=== PATIENT | female | born 1975 | race Caucasian/White ===

== ENCOUNTER 2024-09-29 16:23 | Emergency (ER) | payer OTHER, SELFPAY ==
[2024-09-29 16:37] VITALS: BP 126/78; PULSE 67; RESP 17; TEMP 36.7; O2SAT 99
--- NOTE | 2024-09-29 16:45 | DI.RAD_ITS ---
Exam(s) XR KNEE LT 3V AP,LAT,ADRIANNA EXAM: XR KNEE LT 3V AP,LAT,ADRIANNA CLINICAL HISTORY: L knee injury. TECHNIQUE: 2D digital imaging was performed of the left knee. Three images were obtained. AP, late ral and PA tunnel views were obtained. COMPARISON: No exams were available for comparison FINDINGS: BONES: No acute fracture is present. No bony destructive lesion is seen. JOINTS: The knee is normally aligned. No joint effusion is seen. No loose body. SOFT TISSUE: Normal. IMPRESSION: Normal radiographs of the left knee. DATA REPOSITORY: RADIATION DOSE DELIVERED:
[2024-09-29] MEDS: Ibuprofen 200 MG TAB PO (16:59)
[2024-09-29] MEDS: Acetaminophen 500 MG TAB 1000 MG PO (16:59)
--- NOTE | 2024-09-29 17:17 | W.ED.GENAD ---
Discharge Plan Disposition Patient Disposition: Home Condition: Stable Discharge Details Clinical Impression: Sprain of left knee Primary Care Provider: [facility] Provider: Mike Ramos Home Meds and New Rx's Prescriptions: No Action fish oil-dha-epa 1 cap PO DAILY cetirizine [24Hour Allergy] 10 mg tablet 10 mg PO DAILY PRN multivitamin [Daily Multi-Vitamin] Tablet 1 tab PO DAILY Discharge Instructions Instructions: Knee Sprain ED Additional Instructions: You were seen in the emergency department for the sprain of your left knee, your exam is suspicious for possible meniscus tear. Please rest, ice, compress and elevate the knee often use the hinged knee brace and crutches as needed for any pain with weightbearing. Please use therapeutic dosing of Tylenol (acetamenophen) & Advil (ibuprofen) in an alternating fashion as follows: Take 1000mg of Tylenol every 6 hours without missing doses- that is 4 times per day. [place] in between the Tylenol dosings, take 400-600mg of Advil also on a 6 hour schedule, that is also 4 times per day. The daily maximum dosing of Tylenol is 4000mg, and the daily maximum dosing of Advil is 2400mg. This is safe to do for weeks. Please note that some common cold medications & prescription pain medications may contain acetamenophen and you need to read OTC drug labels and factor that in to maximum daily dosings. Please make a follow-up appointment if you have no improvement within 7 to 10 days at an orthopedic practice of your choosing, there is [facility] as well as [facility]. Referrals: [facility] [Outside] [facility] [Outside] Discharge Data Discharge Date/Time-TO BE ENTERED AT DEPARTURE: 09/29/24 18:26 HPI General Date/Time Provider Initiated Documentation: 09/29/24 16:46. HPI Narrative: 48 year-old female presents to ED today by POV/ambulating with a chief complaint of L knee injury from skiing with onset today. Quality described as diffuse pain inside the knee joint, no radiation to numbness/tingling, bruising, deformity, endorses swelling. Severity is described as moderate. Palliating factors include nothing specific attempted. Provoking factors include nothing specific. Events leading up to the incident/Associated Symptoms: Patient is visiting the area, has [facility]. Patient not anticoagulated. Related Data Home Medications ?Medication ?Instructions ?Recorded ?Confirmed cetirizine 10 mg tablet (24Hour 10 mg PO DAILY PRN 09/29/24 09/29/24 Allergy) fish oil-dha-epa 1 cap PO DAILY 09/29/24 09/29/24 multivitamin (Daily Multi-Vitamin 1 tab PO DAILY 09/29/24 09/29/24 tablet) Allergies Allergy/AdvReac Type Severity Reaction Status Date / Time Sulfa (Sulfonamide Allergy Severe rash Verified 09/29/24 16:46 Antibiotics) General Stated Complaint: Orthopedic ISELA: 3 Review of Systems All systems reviewed & are unremarkable except as noted in HPI and below Exam Narrative Exam Narrative: GENERAL APPEARANCE: Well-nourished, non-toxic, awake and alert, atraumatic, no acute distress. SKIN: Warm, pink, dry, intact, without rashes/lesions/ulcerations. HEAD: Normocephalic, atraumatic, normal hair distribution for gender/age. EYES: Normal conjunctiva, no exudates on lids/lashes. ENT: Nares patent, no circumoral cyanosis, no facial swelling NECK: Supple, trachea midline, painless cervical ROM. LUNGS/CHEST: Non-labored respirations, normal A/P diameter, symmetrical expansion, no chest wall deformity HEART (CV/PV): No peripheral edema, no JVD. ABDOMEN: Soft, non-distended, no guarding. MSK: Normal ROM, no swelling/deformity to bilateral UEs or LEs, moving all extremities without weakness, no cyanosis, spine midline without tenderness, normal curvature, left knee mildly swollen with joint line and popliteal fossa tenderness, no crepitus, no ligamentous laxity with varus/valgus forces, no ligamentous laxity with anterior drawer test, Kenisha positive NEURO: Mental Status AAOx4 - alert to person, place, time, events No facial droop, no forehead involvement. Motor: No focal weakness - strength 5/5 in bilateral UEs and LEs, proximal and distal, symmetric. Sensory: sensation intact to light touch globally. Gait antalgic. PSYCH: euthymic, cooperative, pleasant, appropriate speech Course Vital Signs Vital signs: Vital Signs Temperature 36.7 C 09/29/24 16:37 Pulse 67 09/29/24 16:37 Respiratory Rate 17 02/24/25 16:37 Blood Pressure 126/78 09/29/24 16:37 Pulse Oximetry 99 09/29/24 16:37 Temperature 36.7 C 09/29/24 16:37 Temperature Source Oral 09/29/24 16:37 Pulse 67 09/29/24 16:37 Respiratory Rate 17 09/29/24 16:37 Blood Pressure 126/78 09/29/24 16:37 Blood Pressure Position Sitting 09/29/24 16:37 Pulse Oximetry 99 09/29/24 16:37 Oxygen Delivery Method Room Air 09/29/24 16:37 Oxygen Flow Rate 0 09/29/24 16:37 Pain Level 2 09/29/24 17:02 Medical Decision Making This dictation utilizes [id number] dictation software and may contain unedited grammatical errors. 48 year-old female presents to ED today by POV/ambulating with a chief complaint of L knee injury from skiing with onset today. Quality described as diffuse pain inside the knee joint, no radiation to numbness/tingling, bruising, deformity, endorses swelling. Severity is described as moderate. Palliating factors include nothing specific attempted. Provoking factors include nothing specific. Events leading up to the incident/Associated Symptoms: Patient is [place] the area, [facility]. Patients' medical history: Negative, otherwise healthy. Family and social history: Noncontributory. Pertinent exam findings / vital signs include left knee mildly swollen with joint line and popliteal fossa tenderness, no crepitus, no ligamentous laxity with varus/valgus forces, no ligamentous laxity with anterior drawer test, Kenisha positive. Differential / pathologies of concern include ligamentous injury, meniscus injury, unlikely fracture. Diagnostic studies of: -XR L knee-no acute pathology seen. Interventions of: -hinged knee brace and crutches. ED Course/Assessment/Plan: 48-year-old female presents status post ski injury with left knee pain, is likely meniscus injury, no signs of fracture, neurovascular intact distal, given hinged knee brace and crutches recommend she follow-up with [facility] as she is currently traveling around the country. Findings not consistent with fracture/NV compromise. Disposition of Sprain of Left Knee. Patient verbalized understanding of the plan and return to ED criteria and engaged in shared decision making. Medical Records Medical records reviewed: Yes I reviewed the patient's medical records. Imaging Data Radiologic Study: Attestation: I personally reviewed and interpreted this imaging study as follows: Imaging: X-Ray Radiologist's impression: EXAM: XR KNEE LT 3V AP,LAT,ADRIANNA CLINICAL HISTORY: L knee injury. TECHNIQUE: 2D digital imaging was performed of the left knee. Three images were obtained. AP, lateral and PA tunnel views were obtained. COMPARISON: No exams were available for comparison FINDINGS: BONES: No acute fracture is present. No bony destructive lesion is seen. JOINTS: The knee is normally aligned. No joint effusion is seen. No loose body. SOFT TISSUE: Normal. IMPRESSION: Normal radiographs of the left knee. Quality:SDOH Health Related Social Needs: No Data to Display PFSH All Active Problems (Updated 09/29/24 @ 18:04 by KEENAN Juares) Sprain of left knee (Acute) Social History Smoking/Tobacco Use Status: Never Smoking risk assessment performed?: Yes Alcohol Intake: current Alcohol Intake frequency: other Alcohol type: wine Drug use: Never Substance use type: does not use PAWSS Have you Been Recently Intoxicated or Drunk Within the Last 30 days?: No Have you Ever Experienced Previous Episodes of Alcohol Withdrawal?: No Have you ever Experienced Withdrawal Seizures?: No Have you ever Experienced Delirium Tremens(DT)s?: No Have you ever undergone Alcohol Rehabilitation Treatment (i.e, inpt ot outpatient treatment programs)?: No Have you ever Experienced Blackouts?: No Have you ever Combined Alcohol with other Downers within the last 90 days?: No Have you ever Combined Alcohol with any other Substance of Abuse during the last 90 days?: No Positive Blood Alcohol level on Presentation? [PCS.BAL]: No Evidence of Increased Autonomic Activity (i.e. HR>120, tremor, sweating, agitation, nausea)?: No Result: 0
== END 2024-09-29 18:26 | disposition home or self-care (01) ==
PROVIDERS: Emergency Provider Physician Assistant
DX: S83.92XA Sprain of unspecified site of left knee, initial encounter (principal); W00.0XXA Fall on same level due to ice and snow, initial encounter; Y93.23 Activity, snow (alpine) (downhill) skiing, snowboarding, sledding, tobogganing and snow tubing; Y92.838 Other recreation area as the place of occurrence of the external cause
CPT/HCPCS: 73562; 99283